=== PATIENT | male | born 1965 | race Caucasian/White ===

== ENCOUNTER → 2017-04-22 | Outpatient (CLI) | payer BC ==
--- NOTE | 2017-04-22 16:56 | RAD ---
Examination: X-rays of the hips bilaterally. Clinical history: Back and bilateral hip pain. Technique: AP and frog-leg lateral views of both hips were obtained. Comparison: None available. Findings: No acute fracture, dislocation, or destructive bony lesion is noted. No arthropathy is noted at the hips bilaterally. Degenerative changes are noted in the visualized por tion of the lumbar spine. A soft tissue opacity is seen overlying the pelvis, likely a partially filled bladder. Calcific densi ties are seen overlying the pelvis, likely due to phleboliths. Impression: 1. No acute fracture or dislocation. Reported By:
--- NOTE | 2017-04-22 16:56 | RAD ---
Examination: Thoracic spine, AP and lateral views History: Back and hip pain Findings: No acute fracture, subluxation, pedicle destruction or paraspinal mass. Ossification of spi nal ligaments and hypertrophic osteophytes noted at multiple levels. Impression: No acute process. Multilevel degenerative spondylosis with suspect findings of DISH. Reported By:
--- NOTE | 2017-04-22 16:58 | RAD ---
Examination: Lumbar spine, AP and lateral views History: Back pain Findings: Degenerative disc narrowing and marginal osteophyte production at multiple levels, most adv anced at L5-S1 and L2-L3. No acute fracture, pedicle destruction or sacroiliac disease. There is mini mal anterior listhesis at L3-4 consistent with apophyseal facet arthropathy. Impression: No acute process identified. 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 Reported By:
== END | disposition home or self-care (01) | DRG 552 ==
LOC: RAD 16:05
PROVIDERS: ATTEND Nurse Practitioner Family
DX: M54.17 Radiculopathy, lumbosacral region (principal); M54.6 Pain in thoracic spine; M25.551 Pain in right hip; M25.552 Pain in left hip
CPT/HCPCS: 72072; 72100; 73521